=== PATIENT | male | born 1945 | race Caucasian/White ===

== ENCOUNTER 2020-04-09 08:29 | Outpatient (CLI) | payer MEDICARE, SELFPAY ==
--- NOTE | ~2020-04-09 | CT_ITS ---
EXAMINATION: CT abdomen pelvis w con DATE: 04/09/2020 09:06 INDICATION: Abdominal pain. TECHNIQUE: Computed tomography (CT) of the abdomen and pelvis was performed with 100 mL Omnipaque 350 intravenous contrast. Automated exposure control and iterative reconstruction technique were employe d. The dose-length product was 278.06 mGy-cm. COMPARISON: CT abdomen and pelvis 02/20/2019 FINDINGS: The visualized portions of the lung bases demonstrate mild atelectasis. No pleural effusion . The heart size is normal. No pericardial effusion. The liver, spleen, pancreas, and adrenal glands are normal. There are gallstones in the gallbladder, which is normal in size. There are cysts in the kidneys measuring up to 8 mm on the left. There are two 1 mm stones in right kidney. There are 1 mm a nd 5 mm stones in left kidney. The prostate is moderately enlarged. There are no dilated loops of bow el. The appendix is normal. There are no pathologically enlarged lymph nodes. There is no free intrap eritoneal fluid. There is a chronic compression fracture of L5. There is mild lumbar spondylosis. IMPRESSION: 1. Bilateral nonobstructing kidney stones. 2. Cholelithiasis. No evidence of acute cholecystitis. Reviewed, dictated and finalized at location A.
[2020-04-09 08:58] LABS: Estimated Glomerular Filt Rate > 60
== END 2020-04-09 08:30 | disposition home or self-care (01) ==
PROVIDERS: PCP Internal Medicine; Visit Provider Internal Medicine
DX: N20.0 Calculus of kidney (principal); K80.20 Calculus of gallbladder without cholecystitis without obstruction
CPT/HCPCS: 74177; Q9967

== ENCOUNTER 2021-08-05 09:19 | Outpatient (CLI) | payer MEDICARE, SELFPAY ==
--- NOTE | ~2021-08-05 | MR_ITS ---
EXAMINATION: MR brain/brain stem wo/w con EXAM DATE: 08/05/2021 11:40 INDICATION: Mild cognitive impairment. TECHNIQUE: Magnetic resonance imaging (MRI) of the brain/brain stem obtained without contrast. Sagit kadeem T1, axial diffusion, gradient echo (T2*), T1, T2, FLAIR sequences obtained. Patient was then inj ected with 13 cc intravenous Multihance contrast. Axial and coronal postcontrast T1 weighted sequence s obtained. There is no prior study for comparison. FINDINGS: There are no areas of restricted diffusion to suggest acute infarction. There is no acute hemorrhage seen on the T2*, a hemosiderin sensitive sequence. No intraparenchymal brain mass lesion. There is mild periventricular and subcortical T2/FLAIR signal hyperintensity, nonspecific but probab ly related to small vessel ischemic disease (microangiopathy). There are no extra-axial collections . Flow voids are seen in the cerebral arteries on the T2-weighted sequences consistent with their ex pected patency. Patient has had bilateral ocular lens surgery. Soft tissue is unremarkable. There are no areas of abnormal enhancement on the postcontrast images. IMPRESSION: 1. No acute intracranial findings. 2. Mild microangiopathy. Reviewed, dictated and finalized at location A. AKE PROFESSIONAL
[2021-08-05 10:00] LABS: Hemoglobin 13.3 g/dL (14.0-18.0); Mean Corpuscular HGB Conc 33.3 g/dl (32-36); Mean Corpuscular Volume 93.2 fl (80-100); Mean Platelet Volume 10.6 fl (7.4-10.4); Platelet Count Result 212 k/mm3 (150-375); Red Blood Count 4.29 M/mm3 (4.6-6.20); Red Cell Distribution Width 14.1 % (11.5-14.5); White Blood Count 5.4 K/mm3 (4.5-10.0)
[2021-08-05 10:12] LABS: Alanine Aminotransferase 19 U/L (4-50); Albumin Level 3.8 g/dL (3.5-5.1); Alkaline Phosphatase 58 U/L (38-126); Anion Gap 2 mmol/L (8-16); Aspartate Amino Transferase 27 U/L (17-59); Bilirubin,Total 0.8 mg/dL (0.2-1.3); Blood Urea Nitrogen 17 mg/dL (9-20); Calcium 8.4 mg/dL (8.4-10.2); Carbon Dioxide 32 mmol/L (22-30); Chloride 105 mmol/L (98-107); Cholesterol 191 mg/dL (0-200); Estimated Glomerular Filt Rate > 60; Glucose 102 mg/dL (65-110); HDL Direct 60 mg/dL; Potassium 4.2 mmol/L (3.4-5.0); Sodium 139 mmol/L (137-145); Triglycerides 65 mg/dL (<150)
[2021-08-05 10:21] LABS: Add Urine Microscopic? NO; Appearance Urine Clear (Clear); Bilirubin Urine Negative (Negative); Blood Urine Negative (Negative); Color Urine Yellow (Yellow); Glucose Urine UA Negative (Negative); Ketones Urine Negative (Negative); Leukocyte Esterase Ur Negative LEU/UL (NEGATIVE); Nitrate Urine Negative (Negative); Protein Urine Negative (Negative); Specific Grav Ur 1.014 (1.001-1.035); Urobilinogen Urine Negative mg/dL (<2.0)
[2021-08-05 10:23] LABS: LDL Cholesterol Direct 104 mg/dL
[2021-08-05 10:34] LABS: Basophils Absolute Auto 0.1 K/mm3 (0.0-0.1); Basophils Percent Auto 1.4 % (0.2-1.2); Eosinophils Absolute Auto 0.1 K/mm3 (0-0.3); Eosinophils Percent Auto 2.1 % (0-4.4); Free T4 Free Thyroxine 0.96 ng/mL (0.78-2.19); Immature Granulocyte Absolute 0.02 K/mm3 (0.00-0.031); Immature Granulocyte Percent A 0.4 % (0-0.5); Lymphocytes Absolute Auto 1.17 K/mm3 (0.9-3.2); Lymphocytes Percent Auto 20.7 % (18.3-44.2); Monocytes Absolute Auto 0.6 K/mm3 (0.1-0.6); Monocytes Percent Auto 9.9 % (2.6-8.5); Neutrophils Absolute Auto 3.7 K/mm3 (1.3-6.7); Neutrophils Percent Auto 65.5 % (45.5-73.1)
[2021-08-05 10:43] LABS: Prostate Specific Antigen 0.6 ng/mL (< OR = 4.0)
[2021-08-05 11:19] LABS: Folic Acid 14.2 ng/mL (2.76->20)
[2021-08-05 11:22] LABS: Estimated Glomerular Filt Rate > 60
== END 2021-08-05 09:20 | disposition home or self-care (01) ==
PROVIDERS: PCP Physician Assistant; Visit Provider Physician Assistant
DX: G31.84 Mild cognitive impairment of uncertain or unknown etiology (principal); R93.0 Abnormal findings on diagnostic imaging of skull and head, not elsewhere classified; Z12.5 Encounter for screening for malignant neoplasm of prostate; N40.0 Benign prostatic hyperplasia without lower urinary tract symptoms; Z79.899 Other long term (current) drug therapy
CPT/HCPCS: 36415; 70553; 80048; 80061; 80076; 81003; 82607; 82746; 84153; 84439; 84443; 85025; 85027; A9577; G0103

== ENCOUNTER 2022-06-27 13:41 | Observation (INO) | payer MEDICARE, SELFPAY ==
[2022-06-27] VITALS (8 sets, daily range): BP systolic 121–169; BP diastolic 54–68; PULSE 46–110; RESP 12–20; TEMP 36.4–37.3; O2SAT 95–100; BMI 22.1
--- NOTE | ~2022-06-27 | XR_ITS ---
EXAMINATION: XR abdomen/kub 1V DATE: 06/28/2022 05:22 INDICATION: Assess renal stone visibility TECHNIQUE: A supine view of the abdomen on 2 radiographs was obtained. COMPARISON: CT dated 06/27/2022 FINDINGS: 4 mm stone in an inferior calyx of the left kidney unchanged since prior CT. There is a left intraren al stent with loops formed in the left renal pelvis and in the bladder. No other stones seen along th e course of the ureter. There are few phleboliths in the pelvis. No dilated loops of bowel to suggest obstruction. Visualized lung bases are clear. Heart size is normal. Mild lumbar spondylosis. IMPRESSION: 1. 4 mm stone in an inferior calyx of the left kidney. 2. Left internal ureteral stent in expected position with no stones seen along the course of the sten t. Reviewed, dictated and finalized at location A. CONSULTANT IMPRESSION: 1. 4 mm stone in an inferior calyx of the left kidney. 2. Left internal ureteral stent in expected position with no stones seen along the course of the stent.
--- NOTE | ~2022-06-27 | XR_ITS ---
EXAMINATION: XR retrograde pyelo w/stent LT DATE: 06/27/2022 15:47 INDICATION: Obstructing left renal stone with left hydronephrosis. TECHNIQUE: 67 fluoroscopic images of the abdomen and pelvis were obtained during procedure performed by Dr. Delarosa. Radiologist was not present for the imaging or procedure. The amount of fluoroscop y time used during this procedure was 1.8 minutes. COMPARISON: CT dated FINDINGS: Images demonstrate cannulation retrograde contrast injection into the left ureter which proceeds to t he obstruction in the mid left ureter. Subsequent images demonstrate opacification of the catheter be yond the obstructing stone into the left renal pelvis where there is severe hydronephrosis. Final pro ges demonstrate placement of a left internal ureteral stent with loops formed in the left renal pelvi s and in the bladder. The obstructing stone which is seen on the prior CT is unable to be visualized on the fluoroscopic images. IMPRESSION: 1. Fluoroscopy utilized during placement of a left intrarenal stent which is in expected position spa nning the site of to a mid ureteral obstruction likely related to a ureteral stone seen on prior CT. See procedure note for further detail. Reviewed, dictated and finalized at location A. RAL RESOURCE OFFICER IMPRESSION: 1. Fluoroscopy utilized during placement of a left intrarenal stent which is in expected position spanning the site of to a mid ureteral obstruction likely re lated to a ureteral stone seen on prior CT. See procedure note for further deta il.
--- NOTE | 2022-06-27 13:45 | PM.IMHP ---
H&P: HPI History of Present Illness Date/Time: 06/27/22 13:45 Chief Complaint: abdominal pain Narrative: this is a 77-year-old male patient who has a history of having kidney disease. The patient had hyperparathyroidism and had a partial parathyroid ectomy in the past which did help with the kidney stones. However he does occasionally get at kidney stone here and there that he passes on his own. However this morning the patient went to [facility] after waking up with severe abdominal pain he had the CT of the abdomen which shows to use subjacent obstructing stacked stones in the distal left ureter at the level of the pelvic brim. Maurepas calcis seal clubbing pronounced hydronephrosis and dilated proximal left ureter. Mid ureteral wall enhancement and periureteral induration could represent infectious inflammatory process in the ureter. The stones comprised left renal function as there is no uptake concentration or clearance of the contrast by the left kidney and no opacification left renal pelvis or left ureter. Normal right kidney. No bowel obstruction or appendicitis or acute inflammatory changes in the large or small bowel. Cholelithiasis without findings of cholecystitis unchanged since 02/06. Urine was found to be negative and [facility]. The [facility] provider did speak with Dr. Gordon who agreed to see the patient consulted [facility]. Patient's lipase was only mildly elevated at 474. The patient was given morphine, Toradol, IV fluids, and iopamidol at [facility]. BUN was elevated to 25 and creatinine 1.72. The patient is being admitted to observation status on the date of service of 06/27/2022. Review of Systems Review of Systems: See HPI All systems reviewed & are unremarkable except as noted in HPI and below Constitutional: Constitutional: Reports as per HPI and Reports no additional constitutional complaints Eyes: Eyes: Reports as per HPI and Reports no additional eye complaints ENT: Reports system reviewed and no additional complaints, except as documented and Reports Normal hearing present Cardiovascular: Cardiovascular: Reports no additional cardiovascular complaints Respiratory: Respiratory: Reports no additional respiratory complaints and Reports no additional respiratory complaints Gastrointestinal: Gastrointestinal: Reports as per HPI and Reports no additional gastrointestinal complaints Musculoskeletal: Musculoskeletal: Reports no additional musculoskeletal complaints Integumentary/Breasts: Skin/Breast: Reports system reviewed and no additional complaints, except as docu and Reports as per HPI Neurologic: Reports system reviewed and no additional complaints, except as documented, Reports as per HPI and Reports Normal hearing present Psychiatric: Psychiatric: Reports no additional psychiatric complaints and Reports as per HPI Endocrine: Endocrine: Reports no additional endocrine complaints Hematologic/Lymphatic: Hematologic/Lymphatic: Reports no additional hematologic/lymphatic complaints Allergic/Immunologic: Allergic/Immunologic: Reports no additional allergic/immunologic complaints [facility] Past Medical History Medical History (Updated 06/27/22 @ 13:56 by Thelma Braxton NP) Anxiety BPH (benign prostatic hyperplasia) Gallstone Hyperlipidemia Hypertension Surgical History Surgical History (Updated 06/27/22 @ 13:56 by Thelma Braxton NP) H/O cataract extraction H/O knee surgery H/O parathyroidectomy partial History of extraction of renal calculus History of surgery on arm S/P tonsillectomy and adenoidectomy the patient has a large scar on his right flank area Family History Family History Mother Family history of chronic obstructive pulmonary disease Father Malignant neoplasm of prostate Family history of malignant melanoma Acute myocardial infarction Other Cerebrovascular accident Fam
--- NOTE | 2022-06-27 14:18 | WPDANESEPP ---
Anes - Eval Pre Procedure Procedure: cysto stent placement Date/Time: 06/27/22 14:18 Surgeon: maribel Pre Op Diagnosis: Ureteral Stone Patient Data Age: 77 Gender: M Height: 1.75 m Weight: 68.2 kg Allergies Allergy/AdvReac Type Severity Reaction Status Date / Time Penicillins Allergy Mild rash Verified 09/04/20 13:35 Home Medications Medication Instructions Recorded Confirmed Type cholecalciferol (vitamin D3) 50 50 mcg PO DAILY 07/17/20 06/27/22 History mcg (2,000 unit) tablet omega-3 fatty acids-fish oil 360 1 cap PO DAILY 07/17/20 06/27/22 History mg-1,200 mg capsule (Fish Oil) psyllium husk 0.52 gram capsule 1.04 g PO DAILY 07/17/20 06/27/22 History (Metamucil) amlodipine 5 mg tablet 5 mg PO DAILY #90 tabs 07/31/20 06/27/22 Rx escitalopram oxalate 20 mg tablet 20 mg PO DAILY 90 days #90 tabs 08/08/20 06/27/22 Rx metoprolol succinate 50 mg 50 mg PO DAILY #90 tabs 08/09/20 06/27/22 Rx tablet,extended release 24 hr diazepam 5 mg tablet 5 mg PO BID PRN anxiety 30 days 09/24/20 06/27/22 Rx #60 tabs finasteride 5 mg tablet 5 mg PO DAILY #90 tabs 09/24/20 06/27/22 Rx donepezil 5 mg tablet 5 mg PO HS 06/27/22 06/27/22 History memantine 10 mg tablet 10 mg PO QPM 06/27/22 06/27/22 History Patient hx anesthesia problems: none Family hx anesthesia problems: none Results Review: All pre-operative results and documents have been reviewed as part of the pre-operative evaluation. [facility] Past Medical History Medical History (Updated 06/27/22 @ 13:56 by Thelma Braxton NP) Anxiety BPH (benign prostatic hyperplasia) Gallstone Hyperlipidemia Hypertension Surgical History Surgical History (Updated 06/27/22 @ 13:56 by Thelma Braxton NP) H/O cataract extraction H/O knee surgery H/O parathyroidectomy partial History of extraction of renal calculus History of surgery on arm S/P tonsillectomy and adenoidectomy the patient has a large scar on his right flank area Family History Family History Mother Family history of chronic obstructive pulmonary disease Father Malignant neoplasm of prostate Family history of malignant melanoma Acute myocardial infarction Other Cerebrovascular accident Family history of cardiovascular disease Family history of coronary artery disease Family history of lung disease Family history of malignant neoplasm Social History Social History (Updated 06/27/22 @ 13:56 by Thelma Braxton NP) Social History: the patient is and lives with his who is the durable power deputy prosecuting attorney for healthcare. The patient has 3 children. The patient retired from [employer]. He is a lifelong nonsmoker. He does not use any marijuana alcohol or illicit drugs. Code status full code Smoking status: Never smoker Second hand tobacco smoke exposure: No Alcohol intake: current Drinks per week: 1 Substance use: never Substance use type: does not use Lack of Transportation: No Lack of Food: Never True Current Housing: I Have Housing Concerned About Future Housing: No Difficulty Paying Gas/Electric Bills: No Difficulty Paying for Meds: No Currently Unemployed: No Education: Bachelor's Degree Difficulty w/ Childcare or Family Care: No Spiritual care concerns: No Exam Day of Procedure 06/27/22 14:18 Heart: regular rate and rhythm Lungs: clear to auscultation Airway: Mallampati scale class 1 and special considerations Neurological: alert and oriented
[2022-06-27 14:53] LABS: Lactic Acid Reflex 0.8 mmol/L (0.7-2.0); Magnesium 2.1 mg/dL (1.6-2.3)
--- NOTE | 2022-06-27 15:06 | P.PNAN_ITS ---
Anes - Eval Final PreProcedure Day of Procedure 06/27/22 15:06 Patient weight: normal Heart: regular rate and rhythm Lungs: clear to auscultation Airway: Mallampati scale class 1 Neurological: alert and oriented Last oral intake: >/= 8 hours ASA classification: II Emergent: no Anesthetic plan: proceed Anesthesia type and monitoring: general LMA and standard monitoring Results Review: All pre-operative results and documents have been reviewed as part of the pre- operative evaluation. Informed Consent: The patient's anesthetic plan and its attendant risks and benefits were discussed with the patient/family/POA. Questions were solicited and answers provided to the satisfaction of the patient/family/POA.
[2022-06-27] MEDS: ceFAZolin SODIUM 1 GM VIAL 2 GM IV PUSH (15:18)
[2022-06-27] MEDS: LACTATED RINGERS 1,000 ML 30 ML IV CONT (15:18)
--- NOTE | 2022-06-27 15:19 | WPDURCON ---
Assessment and Plan Assessment and plan (1) Acute unilateral obstructive uropathy: Code(s): N13.9 - Obstructive and reflux uropathy, unspecified Status: Acute (2) Acute kidney injury: Code(s): N17.9 - Acute kidney failure, unspecified Status: Acute (3) Ureteral calculus, left: Code(s): N20.1 - Calculus of ureter Status: Acute Assessment and Plan: 77-year-old gentleman with history of nephrolithiasis presenting with 10mm and 6mm left mid ureteral stones with associated hydroureteronephrosis. -risk benefits alternatives discussed with patient. Given his significant pain, renal insufficiency and large size of the stones will plan to take the patient today for cystoscopy and left ureteral stent insertion. The risks benefits alternatives were discussed the patient patient understands the risks include but are not limited to infection, bleeding, pain, injury to surrounding structures, inability to place stent, and complications of anesthesia. He understands he will need definitive stone management at a later date. The patient and agree to proceed with procedure. Urology Consult Note HPI Date Seen: 06/27/22 Requesting Physician: Cecille Delarosa MD Primary Care Provider: Mari Khan, PAAlexC Consult Narrative Narrative: Oscar Woods is a 77 year old male with history of stone disease. He presented to [facility] Emergency Department this morning and found to have two left ureteral stones causing left hydronephrosis and acute renal insufficiency. The patient continued to have significant left-sided flank pain and was therefore transferred to [facility] for surgical intervention. [facility] Past Medical History Medical History (Updated 06/27/22 @ 15:23 by Cecille Delarosa MD) Anxiety BPH (benign prostatic hyperplasia) Gallstone Hyperlipidemia Hypertension Surgical History Surgical History (Updated 06/27/22 @ 13:56 by Thelma Braxton NP) H/O cataract extraction H/O knee surgery H/O parathyroidectomy partial History of extraction of renal calculus History of surgery on arm S/P tonsillectomy and adenoidectomy the patient has a large scar on his right flank area Family History Family History Mother Family history of chronic obstructive pulmonary disease Father Malignant neoplasm of prostate Family history of malignant melanoma Acute myocardial infarction Other Cerebrovascular accident Family history of cardiovascular disease Family history of coronary artery disease Family history of lung disease Family history of malignant neoplasm Social History Social History (Updated 06/27/22 @ 13:56 by Thelma Braxton NP) Social History: the patient is and lives with his who is the durable power web page developer for healthcare. The patient has 3 children. The patient retired from [employer]. He is a lifelong nonsmoker. He does not use any marijuana alcohol or illicit drugs. Code status full code Smoking status: Never smoker Second hand tobacco smoke exposure: No Alcohol intake: current Drinks per week: 1 Substance use: never Substance use type: does not use Lack of Transportation: No Lack of Food: Never True Current Housing: I Have Housing Concerned About Future Housing: No Difficulty Paying Gas/Electric Bills: No Difficulty Paying for Meds: No Currently Unemployed: No Education: Bachelor's Degree Difficulty w/ Childcare or Family Care: No Spiritual care concerns: No Meds Home Medications and Allergies Home Medications Medication Instructions Recorded Confirmed Type cholecalciferol (vitamin D3) 50 50 mcg PO DAILY 07/17/20 06/27/22 History mcg (2,000 unit) tablet omega-3 fatty acids-fish oil 360 1 cap PO DAILY 07/17/20 06/27/22 History mg-1,200 mg capsule (Fish Oil) psyllium husk 0.52 gram capsule 1.04 g PO
--- NOTE | 2022-06-27 15:25 | WPDHPUPDATE1 ---
History and Physical Update Update Date/Time: 06/27/22 15:25 History and Physical has been reviewed, including an updated exam of the patient. There are NO changes in the patient's condition. Risks, benefits, and alternatives have been discussed and questions answered. Patient agrees to proceed with procedure.
[2022-06-27] MEDS: LIDOCAINE HCL 2% GEL UROJET 10 ML PKG MUCOUS MEM (15:32)
--- NOTE | 2022-06-27 15:45 | W.PM.PROC2 ---
Procedure Note - Detailed Date of Procedure 06/27/22 Pre-op Diagnosis Left Ureteral Stone Post-op Diagnosis Same Procedure Performed Cystoscopy, left retrograde pyelogram, left ureteral stent insertion Surgeon Cecille Delarosa MD Anesthesia MAC Indications Obstructing left ureteral stone Findings Moderate/severe left hydroureteronephrosis down to level of obstructing stones Description of Procedure Informed consent was obtained. Patient taken the operating. He was given preoperative IV antibiotics. He was induced anesthesia. Twenty-two F cystoscope was inserted through the urethra into bladder. The patient had moderate bilobar prostatic hyperplasia with mild bladder trabeculation. Patient had bilateral orthotopic orifices. Can the left ureteral orifice and a retrograde pyelogram revealed obstruction of the left mid ureter with contrast unable to pass. We then advanced a 5 F catheter up to this point and were able under fluoroscopic guidance to guide a wire beyond the level of the obstructing stone. We then again performed retrograde pyelogram revealing moderate to severe left hydroureteronephrosis down to the level of the stone. Over wire we then placed a 4.8 F variable length stent with a curl renal pelvis and curl in the bladder. The bladder was then emptied patient was taken to recovery in stable condition Complications No immediate complications Condition Stable Disposition PACU
[2022-06-27] MEDS: MEMANTINE 10 MG TABLET PO (17:10)
[2022-06-27] MEDS: SODIUM CHLORIDE 0.9% IV 1,000 ML 100 ML IV CONT (17:21)
[2022-06-27] MEDS: amLODIPine BESYLATE 5 MG TABLET PO (17:22)
[2022-06-27] MEDS: FINASTERIDE 5 MG TABLET PO (17:23)
[2022-06-27] MEDS: METOPROLOL SUCCINATE EXT REL 50 MG TABCR PO (17:23)
[2022-06-27] MEDS: CHOLECALCIFEROL 1,000 UNITS TABLET 2000 UNITS PO (17:23)
[2022-06-27] MEDS: ESCITALOPRAM OXALATE 10 MG TABLET 20 MG PO (17:23)
[2022-06-27] MEDS: OMEGA 3 POLYUNSAT FATTY ACIDS 1 GM CAP PO (17:26)
[2022-06-27] MEDS: DONEPEZIL HCL 5 MG TABLET PO (20:30)
[2022-06-27 20:38] LABS: Appearance Urine Slightly Cloudy (Clear); Bilirubin Urine Negative (Negative); Blood Urine 3+ (Negative); Color Urine Yellow (Yellow); Glucose Urine UA Negative (Negative); Ketones Urine Negative (Negative); Leukocyte Esterase Ur Trace LEU/UL (NEGATIVE); Nitrate Urine Negative (Negative); Protein Urine 2+ mg/dL (Negative); Urobilinogen Urine 0.2 mg/dL (<2.0)
[2022-06-27 20:51] LABS: RBC Urine >75 /hpf (0-2); Squamous Epithelial Cell Urine Rare /hpf (Few); WBC Urine 21-30 /hpf (0-3)
[2022-06-27 21:24] LABS: Add Urine Microscopic? YES
[2022-06-28] MEDS: SODIUM CHLORIDE 0.9% IV 1,000 ML 100 ML IV CONT (02:30)
[2022-06-28 05:36] VITALS: BP 166/86; PULSE 57; RESP 20; TEMP 37.3; O2SAT 97
[2022-06-28 05:39] LABS: Basophils Percent Auto 0.6 % (0.2-1.2); Eosinophils Absolute Auto 0.2 K/mm3 (0-0.3); Eosinophils Percent Auto 2.3 % (0-4.4); Hematocrit 35.2 % (42.0-52.0); Hemoglobin 11.9 g/dL (14.0-18.0); Immature Granulocyte Absolute 0.02 K/mm3 (0.00-0.031); Immature Granulocyte Percent A 0.3 % (0-0.5); Mean Corpuscular HGB Conc 33.8 g/dl (32-36); Mean Corpuscular Hemoglobin 31.2 pg (26-34); Mean Corpuscular Volume 92.1 fl (80-100); Mean Platelet Volume 11.1 fl (7.4-10.4); Monocytes Absolute Auto 0.7 K/mm3 (0.1-0.6); Monocytes Percent Auto 9.7 % (2.6-8.5); Neutrophils Absolute Auto 4.5 K/mm3 (1.3-6.7); Neutrophils Percent Auto 63.1 % (45.5-73.1); Platelet Count Result 183 k/mm3 (150-375); Red Blood Count 3.82 M/mm3 (4.6-6.20); Red Cell Distribution Width 13.9 % (11.5-14.5); White Blood Count 7.1 K/mm3 (4.5-10.0)
[2022-06-28 05:49] LABS: Lactic Acid Reflex 0.7 mmol/L (0.7-2.0)
[2022-06-28 05:53] LABS: Alanine Aminotransferase 22 U/L (6-50); Albumin Level 3.4 g/dL (3.5-5.1); Alkaline Phosphatase 61 U/L (38-126); Anion Gap 5 mmol/L (8-16); Aspartate Amino Transferase 23 U/L (17-59); Bilirubin,Total 0.6 mg/dL (0.2-1.3); Blood Urea Nitrogen 18 mg/dL (9-20); Calcium 7.5 mg/dL (8.4-10.2); Carbon Dioxide 26 mmol/L (22-30); Chloride 108 mmol/L (98-107); Estimated CRCL calculation 47 ml/min; Estimated Glomerular Filt Rate > 60; Glucose 89 mg/dL (65-110); Lipase 75 U/L (23-300); Magnesium 2.1 mg/dL (1.6-2.3); Potassium 3.6 mmol/L (3.4-5.0); Sodium 139 mmol/L (137-145)
--- NOTE | 2022-06-28 07:13 | P.PNIM_ITS ---
Progress Note: A&P Assessment and Plan (1) Left nephrolithiasis: Code(s): N20.0 - Calculus of kidney Status: Acute Assessment and Plan: * Direct admit from [facility] for further evaluation of kidney stone * CT at [facility] showed left sided stone 100mm and 6mm mid left ureter with hydronephrosis * Urology consulted * Cystoscopy performed with stent placement * Trend urine output (2) Acute unilateral obstructive uropathy: Code(s): N13.9 - Obstructive and reflux uropathy, unspecified Status: Acute Assessment and Plan: * Urology consulted * Stent placement on 06/27/22 * See above (3) BPH (benign prostatic hyperplasia): Code(s): N40.0 - Benign prostatic hyperplasia without lower urinary tract symptoms Status: Acute Assessment and Plan: * Continue home finastride * Consider adding tamsulosin * PRN bladder scan * Trend urine output (4) Acute kidney injury: Code(s): N17.9 - Acute kidney failure, unspecified Status: Acute Assessment and Plan: * BUN/Cr elevated at 25/1.72 upon arrival * Currently 18/1.10 * Baseline 0.9-1 * IV fluids given * Most likely related to ureteral stone * Resolved (5) Anxiety: Code(s): F41.9 - Anxiety disorder, unspecified Status: Acute Assessment and Plan: * Continue with home diazepam 5mg PO PRN BID * Stable * Continue to trend (6) Gallstone: Code(s): K80.20 - Calculus of gallbladder without cholecystitis without obstruction Status: Acute Assessment and Plan: * The patient stated he has been worked up for the gallstones but no surgery is planned in the near future * Stable at this time * Will defer to outpatient follow up (7) Hyperlipidemia: Code(s): E78.5 - Hyperlipidemia, unspecified Status: Acute Assessment and Plan: -Continue with fish oil (8) Hypertension: Code(s): I10 - Essential (primary) hypertension Status: Acute Assessment and Plan: * Current BP is 166/86 * Most likely elevated from anxiety of recent findings and events * Continue home amlodipine and metoprolol * Trend BP * Adjust therapy as indicated Time Spent With Patient Time with patient: Greater than 35 minutes Subjective Date/time seen: 06/28/22 07:13 Interval history: 06/28/22 06/27/22 1345 This is a 77-year-old male patient who has a history of having kidney disease.? The patient had hyperparathyroidism and had a partial parathyroid ectomy in the past which did help with the kidney stones.? However he does occasionally get at kidney stone here and there that he passes on his own.? However this morning the patient went to [facility] after waking up with severe abdominal pain he had the CT of the abdomen which shows to use subjacent obstructing stacked stones in the distal left ureter at the level of the pelvic brim.? Gunlock calcis seal clubbing pronounced hydronephrosis and dilated proximal left ureter.? Mid ureteral wall enhancement and periureteral induration could represent infectious inflammatory process in the ureter.? The stones comprised left renal function as there is no uptake concentration or clearan
--- NOTE | 2022-06-28 07:13 | PM.IMPN ---
Progress Note: A&P Assessment and Plan (1) Left nephrolithiasis: Code(s): N20.0 - Calculus of kidney Status: Acute Assessment and Plan: Direct admit from [place] for further evaluation of kidney stone CT at [place] showed left sided stone 100mm and 6mm mid left ureter with hydronephrosis Urology consulted Cystoscopy performed with stent placement Trend urine output (2) Acute unilateral obstructive uropathy: Code(s): N13.9 - Obstructive and reflux uropathy, unspecified Status: Acute Assessment and Plan: Urology consulted Stent placement on 06/27/22 See above (3) BPH (benign prostatic hyperplasia): Code(s): N40.0 - Benign prostatic hyperplasia without lower urinary tract symptoms Status: Acute Assessment and Plan: Continue home finastride Consider adding tamsulosin PRN bladder scan Trend urine output (4) Acute kidney injury: Code(s): N17.9 - Acute kidney failure, unspecified Status: Acute Assessment and Plan: BUN/Cr elevated at 25/1.72 upon arrival Currently 18/1.10 Baseline 0.9-1 IV fluids given Most likely related to ureteral stone Resolved (5) Anxiety: Code(s): F41.9 - Anxiety disorder, unspecified Status: Acute Assessment and Plan: Continue with home diazepam 5mg PO PRN BID Stable Continue to trend (6) Gallstone: Code(s): K80.20 - Calculus of gallbladder without cholecystitis without obstruction Status: Acute Assessment and Plan: The patient stated he has been worked up for the gallstones but no surgery is planned in the near future Stable at this time Will defer to outpatient follow up (7) Hyperlipidemia: Code(s): E78.5 - Hyperlipidemia, unspecified Status: Acute Assessment and Plan: -Continue with fish oil (8) Hypertension: Code(s): I10 - Essential (primary) hypertension Status: Acute Assessment and Plan: Current BP is 166/86 Most likely elevated from anxiety of recent findings and events Continue home amlodipine and metoprolol Trend BP Adjust therapy as indicated Time Spent With Patient Time with patient: Greater than 35 minutes Subjective Date/time seen: 06/28/22 07:13 Interval history: 06/28/22 06/27/22 1345 This is a 77-year-old male patient who has a history of having kidney disease.? The patient had hyperparathyroidism and had a partial parathyroid ectomy in the past which did help with the kidney stones.? However he does occasionally get at kidney stone here and there that he passes on his own.? However this morning the patient went to [facility] after waking up with severe abdominal pain he had the CT of the abdomen which shows to use subjacent obstructing stacked stones in the distal left ureter at the level of the pelvic brim.? Argenta calcis seal clubbing pronounced hydronephrosis and dilated proximal left ureter.? Mid ureteral wall enhancement and periureteral induration could represent infectious inflammatory process in the ureter.? The stones comprised left renal function as there is no uptake concentration or clearance of the contrast by the left kidney and no opacification left renal pelvis or left ureter.? Normal right kidney.? No bowel obstruction or appendicitis or acute inflammatory changes in the large or small bowel.? Cholelithiasis without findings of cholecystitis unchanged since 02/06.? Urine was found to be negative and [facility].? The [place] provider did speak with Dr. Gordon who agreed to see the patient consulted [facility].? Patient's lipase was only mildly elevated at 474.? The patient was given morphine, Toradol, IV fluids, and iopamidol? at [facility].? BUN was elevated to 25 and creatinine 1.72. Review of Systems Review of
--- NOTE | 2022-06-28 07:15 | P.DS_ITS ---
DS: Admitting Diagnosis Discharge Date 06/28/22 0715 Admitting Diagnosis Kidney stone DS: Discharge Diagnosis Discharge Diagnosis (1) Left nephrolithiasis: Code(s): N20.0 - Calculus of kidney Status: Acute Assessment and Plan: * Direct admit from [place] for further evaluation of kidney stone * CT at [place] showed left sided stone 100mm and 6mm mid left ureter with hydronephrosis * Urology consulted * Cystoscopy performed with stent placement * Trend urine output (2) Acute unilateral obstructive uropathy: Code(s): N13.9 - Obstructive and reflux uropathy, unspecified Status: Acute Assessment and Plan: * Urology consulted * Stent placement on 06/27/22 * See above (3) BPH (benign prostatic hyperplasia): Code(s): N40.0 - Benign prostatic hyperplasia without lower urinary tract symptoms Status: Acute Assessment and Plan: * Continue home finastride * Consider adding tamsulosin * PRN bladder scan * Trend urine output (4) Acute kidney injury: Code(s): N17.9 - Acute kidney failure, unspecified Status: Acute Assessment and Plan: * BUN/Cr elevated at 25/1.72 upon arrival * Currently 18/1.10 * Baseline 0.9-1 * IV fluids given * Most likely related to ureteral stone * Resolved (5) Anxiety: Code(s): F41.9 - Anxiety disorder, unspecified Status: Acute Assessment and Plan: * Continue with home diazepam 5mg PO PRN BID * Stable * Continue to trend (6) Gallstone: Code(s): K80.20 - Calculus of gallbladder without cholecystitis without obstruction Status: Acute Assessment and Plan: * The patient stated he has been worked up for the gallstones but no surgery is planned in the near future * Stable at this time * Will defer to outpatient follow up (7) Hyperlipidemia: Code(s): E78.5 - Hyperlipidemia, unspecified Status: Acute Assessment and Plan: -Continue with fish oil (8) Hypertension: Code(s): I10 - Essential (primary) hypertension Status: Acute Assessment and Plan: * Current BP is 166/86 * Most likely elevated from anxiety of recent findings and events * Continue home amlodipine and metoprolol * Trend BP * Adjust therapy as indicated DS: Summary Hospital Course Hospital Course: patient is 77-year-old male with a past medical history of BPH, anxiety, hypertension, hyperlipidemia who was a direct admit from [facility] for further management of a right ureteral kidney stone. Urology was consulted and patient was taken for cystoscopy. Renal stent was placed. Patient also presented with an NICOLAS related to urinary obstruction. Patient was also noted to have cholelithiasis however is unchanged since 02/06. Lipase was slightly elevated however is resolved. Currently labs and vital signs are stable at this time. Patient stable for discharge for labs and vital signs. Patient will need follow-up with Urology in 2 weeks for further management of the stent. Status at Discharge Functional status at discharge: independent ambulation Overall status at discharge: patient is progressing back to baseline Time Spent with Patient Time a
--- NOTE | 2022-06-28 07:15 | PM.DS ---
DS: Admitting Diagnosis Discharge Date 06/28/22 0715 Admitting Diagnosis Kidney stone DS: Discharge Diagnosis Discharge Diagnosis (1) Left nephrolithiasis: Code(s): N20.0 - Calculus of kidney Status: Acute Assessment and Plan: Direct admit from [place] for further evaluation of kidney stone CT at [place] showed left sided stone 100mm and 6mm mid left ureter with hydronephrosis Urology consulted Cystoscopy performed with stent placement Trend urine output (2) Acute unilateral obstructive uropathy: Code(s): N13.9 - Obstructive and reflux uropathy, unspecified Status: Acute Assessment and Plan: Urology consulted Stent placement on 06/27/22 See above (3) BPH (benign prostatic hyperplasia): Code(s): N40.0 - Benign prostatic hyperplasia without lower urinary tract symptoms Status: Acute Assessment and Plan: Continue home finastride Consider adding tamsulosin PRN bladder scan Trend urine output (4) Acute kidney injury: Code(s): N17.9 - Acute kidney failure, unspecified Status: Acute Assessment and Plan: BUN/Cr elevated at 25/1.72 upon arrival Currently 18/1.10 Baseline 0.9-1 IV fluids given Most likely related to ureteral stone Resolved (5) Anxiety: Code(s): F41.9 - Anxiety disorder, unspecified Status: Acute Assessment and Plan: Continue with home diazepam 5mg PO PRN BID Stable Continue to trend (6) Gallstone: Code(s): K80.20 - Calculus of gallbladder without cholecystitis without obstruction Status: Acute Assessment and Plan: The patient stated he has been worked up for the gallstones but no surgery is planned in the near future Stable at this time Will defer to outpatient follow up (7) Hyperlipidemia: Code(s): E78.5 - Hyperlipidemia, unspecified Status: Acute Assessment and Plan: -Continue with fish oil (8) Hypertension: Code(s): I10 - Essential (primary) hypertension Status: Acute Assessment and Plan: Current BP is 166/86 Most likely elevated from anxiety of recent findings and events Continue home amlodipine and metoprolol Trend BP Adjust therapy as indicated DS: Summary Hospital Course Hospital Course: patient is 77-year-old male with a past medical history of BPH, anxiety, hypertension, hyperlipidemia who was a direct admit from [facility] for further management of a right ureteral kidney stone. Urology was consulted and patient was taken for cystoscopy. Renal stent was placed. Patient also presented with an NICOLAS related to urinary obstruction. Patient was also noted to have cholelithiasis however is unchanged since 02/06. Lipase was slightly elevated however is resolved. Currently labs and vital signs are stable at this time. Patient stable for discharge for labs and vital signs. Patient will need follow-up with Urology in 2 weeks for further management of the stent. Status at Discharge Functional status at discharge: independent ambulation Overall status at discharge: patient is progressing back to baseline Time Spent with Patient Time attestation: Total time spent providing and/or coordinating discharge services: 40 minutes Time spent: Greater than 30 minutes Specific discharge activities: Diagnostic testing, chart review, developing a treatment plan, education, care coordination documentation, physical exam, result review Exam Narrative: General: well-nourished, well-appearing 77-year-old male, sitting up in bed, comfortable, NARD Neuro: awake, alert and oriented x4, speech clear, no focal neuro deficits noted HEENMT: normocephalic, atraumatic, EOMI, sclerae anicteric, moist oral mucosa Respiratory: Clear to auscultation bilaterally without crackles, rhonchi or wheezes, n
[2022-06-28] MEDS: CHOLECALCIFEROL 1,000 UNITS TABLET 2000 UNITS PO (08:17)
[2022-06-28] MEDS: amLODIPine BESYLATE 5 MG TABLET PO (08:17)
[2022-06-28 08:18] VITALS: PULSE 64
[2022-06-28] MEDS: ESCITALOPRAM OXALATE 10 MG TABLET 20 MG PO (08:18)
[2022-06-28] MEDS: FINASTERIDE 5 MG TABLET PO (08:18)
[2022-06-28] MEDS: OMEGA 3 POLYUNSAT FATTY ACIDS 1 GM CAP PO (08:18)
[2022-06-28] MEDS: METOPROLOL SUCCINATE EXT REL 50 MG TABCR PO (08:18)
--- NOTE | 2022-06-28 12:24 | WPDUROPN2 ---
Progress Note: A&P Assessment and Plan (1) Ureteral calculus, left: Code(s): N20.1 - Calculus of ureter Status: Acute (2) Left nephrolithiasis: Code(s): N20.0 - Calculus of kidney Status: Acute (3) Acute kidney injury: Code(s): N17.9 - Acute kidney failure, unspecified Status: Acute Plan 77-year-old gentleman with history of nephrolithiasis presenting with 10mm and 6mm left mid ureteral stones with associated hydroureteronephrosis. -Status post ureteral stent placement. Patient is feeling much better. Renal function improved. - Plan discharge home today. Plan outpatient definitive stone management, likely ESWL. Explained to patient and his they may need multiple therapies given size of multiple stones Subjective Subjective Date/Time Seen: 06/28/22 12:24 pt feeling much better Exam Narrative: patient is awake and alert, no acute distress breathing unlabored abd soft Objective Data Vital Signs Vital Signs: Vital Signs - 24 hr 06/27/22 15:47 06/27/22 16:00 06/27/22 16:15 Temperature 36.4 C Pulse Rate 53 L 47 L 47 L Respiratory Rate 12 13 12 Blood Pressure 121/63 130/63 139/65 Pulse Oximetry 95 95 96 Oxygen Delivery Room Air Room Air Room Air 06/27/22 16:23 06/27/22 17:23 06/27/22 17:55 Temperature 36.7 C Pulse Rate 46 L 55 L 52 L Respiratory Rate 12 12 Blood Pressure 145/68 H 169/65 H Pulse Oximetry 97 100 Oxygen Delivery Room Air 06/27/22 18:10 06/27/22 20:17 06/28/22 05:36 Temperature 36.7 C 37.3 C 37.3 C Pulse Rate 87 110 H 57 L Respiratory Rate 12 20 20 Blood Pressure 136/54 L 123/68 166/86 H Pulse Oximetry 100 97 97 Oxygen Delivery 06/28/22 08:18 Temperature Pulse Rate 64 Respiratory Rate Blood Pressure Pulse Oximetry Oxygen Delivery Intake/Output Intake/Output: Intake & Output 06/25/22 06/26/22 06/27/22 06/28/22 23:59 23:59 23:59 23:59 Intake Total 770 1690 Output Total 300 1050 Balance 470 640 Meds/Results Medications: Active Medications Generic Name Dose Route Start Last Admin Trade Name Freq PRN Reason Stop Dose Admin Amlodipine Besylate 5 mg 06/28/22 09:00 06/28/22 08:17 Amlodipine Besylate 5 Mg Tablet PO 5 mg DAILY HOLLAND Administration Diazepam 5 mg 06/27/22 14:09 Diazepam (*Crx) 5 Mg Tablet PO BID PRN anxiety Donepezil HCl 5 mg 06/27/22 21:00 06/27/22 20:30 Donepezil Hcl 5 Mg Tablet PO 5 mg HS HOLLAND Administration Escitalopram Oxalate 20 mg 06/28/22 09:00 06/28/22 08:18 Escitalopram Oxalate 10 Mg Tablet PO 20 mg DAILY HOLLAND Administration Finasteride 5 mg 06/28/22 09:00 06/28/22 08:18 Finasteride 5 Mg Tablet PO 5 mg DAILY HOLLAND Administration Fish Oil 1 gm 06/28/22 09:00 06/28/22 08:18 [place] 3 Polyunsat Fatty Acids 1 Gm Cap PO 1 gm DAILY HOLLAND Administration Hydralazine HCl 10 mg 06/27/22 14:11 Hydralazine Hcl 20 Mg/Ml Vial IV PUSH Q8H PRN Blood Pressure - High Memantine 10 mg 06/27/22 18:00 06/27/22 17:10 Memantine 10 Mg Tablet PO 10 mg QPM HOLLAND Administration Metoprolol Succinate 50 mg 06/28/22 09:00 06/28/22 08:18 Metoprolol Succinate Ext Rel 50 Mg Tabcr PO 50 mg DAILY HOLLAND Administration Morphine Sulfate 2 mg 06/27/22 13:41 Morphine Sulfate (*Crx) 2 Mg/Ml Inj IV PUSH Q4H PRN Pain Rated 7-10 Ondansetron HCl 4 mg 06/27/22 14:12 Ondansetron Inj 4 Mg/2 Ml Vial IV PUSH Q4H PRN Nausea And Vomiting Vitamin D 2,000 units 06/28/22 09:00 06/28/22 08:17 Cholecalciferol 1,000 Units Tablet PO 2,000 units DAILY HOLLAND Administration Radiology Results: ITS Impressions Retrograde Pyelogram 06/27/22 19:48 IMPRESSION: 1. Fluoroscopy utilized during placement of a left intrarenal stent which is in expected position spanning the site of to a mid ureteral obstruction likely related to a ureteral stone seen on prior CT. See procedure note for
== END 2022-06-28 13:30 | disposition home or self-care (01) ==
PROVIDERS: Nurse Practitioner; Urology; Admitting Provider Chiropractor; PCP Physician Assistant; Visit Provider Chiropractor
PROC: (CPT 52352; principal; 2022-06-27 15:00)
DX: N13.2 Hydronephrosis with renal and ureteral calculous obstruction (principal); N40.0 Benign prostatic hyperplasia without lower urinary tract symptoms; N17.9 Acute kidney failure, unspecified; N32.89 Other specified disorders of bladder; K80.20 Calculus of gallbladder without cholecystitis without obstruction; F41.9 Anxiety disorder, unspecified; E78.5 Hyperlipidemia, unspecified; E21.3 Hyperparathyroidism, unspecified; I10 Essential (primary) hypertension; E89.2 Postprocedural hypoparathyroidism; F10.90 Alcohol use, unspecified, uncomplicated; Z79.899 Other long term (current) drug therapy
CPT/HCPCS: 52005; 52332; 36415; 74018; 74420; 80053; 81001; 83605; 83690; 83735; 84100; 84443; 85025; 87040; 87086; A9270; C1758; C1769; C2617; G0378; G0379; J0690; J2704; J3010; J7030; J7120

== ENCOUNTER 2022-07-06 12:41 | Outpatient (CLI) | payer MEDICARE, SELFPAY ==
--- NOTE | 2022-07-06 12:59 | ECG_ITS ---
Measurements Intervals [place] Rate: 50 P: 62 OK: 147 QRS: 40 QRSD: 96 T: 38 QT: 482 QTc: 443 Interpretive Statements SINUS BRADYCARDIA BASELINE ARTIFACT- I, II, III, AVR BORDERLINE ECG NO PREVIOUS ECG AVAILABLE FOR COMPARISON Electronically Signed On 07-06-2022 14:00:04 E BUSINESS MANAGER by Tyrel Worrell D.O.
[2022-07-06 14:01] LABS: INR 1.1; Prothrombin Time 13.8 Seconds (11.1-14.7)
[2022-07-06 14:02] LABS: Partial Thromboplastin Time 27.4 SECONDS (22.3-36.8)
== END 2022-07-06 12:42 | disposition home or self-care (01) ==
PROVIDERS: PCP Physician Assistant; Visit Provider Urology
DX: N20.2 Calculus of kidney with calculus of ureter (principal); I10 Essential (primary) hypertension; Z01.818 Encounter for other preprocedural examination; R00.1 Bradycardia, unspecified
CPT/HCPCS: 36415; 85610; 85730; 93005

== ENCOUNTER 2022-07-10 03:37 | Day surgery (SDC) | payer MEDICARE, SELFPAY ==
[2022-07-01 11:02] VITALS: BMI 22.1
--- NOTE | 2022-07-01 11:13 | PC.NURSE ---
PRE-OP INSTRUCTIONS, PLEASE READ CAREFULLY Report to the Outpatient Waiting Room, entrance under the green pavilion located off [facility], at time _0800_ on date _07/10/22_. Planned Procedure Time: _1000_. Time changes happen often and if your time is changed the preop area will call you the afternoon before. - You and your visitor will be asked to self-screen and do not enter if you have any COVID symptoms. - Only one visitor is requested with a max of two and NO children visitors are allowed at this time. - The patient visitor may be requested to leave or wait in car when not with patient due to distancing restrictions. - A mask is optional within the hospital. Patients may have clear liquids (water, carbonated beverages, clear teas, apple juice) until 3 hours prior to surgery (0700 AM) with a maximum of 20 ounces. - No food from midnight until time of surgery Take the following medications with a SIP of water the morning of surgery: _ESCITALOPRAM, MEMANTINE & DIAZEPAM IF NEEDED_ Medications to discontinue per ANESTHESIA -_FISH OIL 3 DAYS PRIOR TO SURGERY, Date to take last dose 07/06/22_ Please no make-up, nail mozambican, hairspray, perfume, deodorant, or body powder the day of surgery. No jewelry (including any body piercings) or valuables the day of surgery, leave them at home. Please take a shower or bath the night before, or the morning of, surgery with an antibacterial soap. Wear comfortable, loose fitting clothing. Children are encouraged to wear pajamas. - Jewelry must be removed prior to entering the operating room. Rings and piercings that are not removed may be cut off. - The hospital will not accept responsibility for valuables. - Please leave all valuables, including medications, at home the day of surgery. If you are going home after surgery, a licensed dedicated truck driver must drive you home. - NO public transportation without another adult if you receive anesthesia. - We recommend that an adult stay with you for 24 hours following discharge. - We also recommend that you do not drive, make important decision, drink alcoholic beverages, or take any drugs that were not prescribed by your health care provider for at least 24 hours after your discharge time. Follow any additional instructions given to you from your surgeon. If you or anyone in your household have experienced Covid symptoms in the past week, please notify your surgeon or the nurse liaison at the phone number below for possible testing. Telephone instructions given to _PATIENT'S SPOUSE - CHUCKIE_and asked if any additional questions and then verbalized understanding. Patient advised to call surgeon office or pre surgery nurse liaison [phone] if any additional questions.
--- NOTE | 2022-07-07 07:53 | PM.HPGS ---
History of Present Illness History of Present Illness Consent: Risks, benefits, and alternatives have been discussed and questions answered. Patient agrees to proceed with procedure. Chief complaint: ureteral stones left Narrative: Oscar Woods is a 77 year old male Recently presented with left flank pain and imaging demonstrating a 10 mm and 6 mm left mid ureteral calculus. He underwent cystoscopy with left ureteral stent placement by Dr. Delarosa and now presents for definitive left ESWL. He is aware of the risk of this including, but not limited to, adverse cardiopulmonary events, persistent stone fragments that may require additional procedures, hematuria and perinephric hematoma. Review of Systems Cardiovascular: Cardiovascular: Denies chest pain, Denies lightheadedness, Denies palpitations and Denies dyspnea Respiratory: Respiratory: Denies dyspnea Gastrointestinal: Gastrointestinal: Denies diarrhea, Denies nausea and Denies vomiting Genitourinary: Genitourinary: Denies hematuria and Denies dysuria Endocrine: Endocrine: Denies palpitations PMFSH Past Medical History Medical History (Updated 06/27/22 @ 15:23 by Cecille Delarosa MD) Anxiety BPH (benign prostatic hyperplasia) Gallstone Hyperlipidemia Hypertension Surgical History Surgical History (Updated 06/27/22 @ 13:56 by Thelma Braxton NP) H/O cataract extraction H/O knee surgery H/O parathyroidectomy partial History of extraction of renal calculus History of surgery on arm S/P tonsillectomy and adenoidectomy the patient has a large scar on his right flank area Family History Family History Mother Family history of chronic obstructive pulmonary disease Father Malignant neoplasm of prostate Family history of malignant melanoma Acute myocardial infarction Other Cerebrovascular accident Family history of cardiovascular disease Family history of coronary artery disease Family history of lung disease Family history of malignant neoplasm Social History Social History (Updated 06/27/22 @ 13:56 by Thelma Braxton NP) Social History: the patient is and lives with his who is the durable power claims attorney for healthcare. The patient has 3 children. The patient retired from [employer]. He is a lifelong nonsmoker. He does not use any marijuana alcohol or illicit drugs. Code status full code Smoking status: Never smoker Second hand tobacco smoke exposure: No Alcohol intake: current Drinks per week: 1 Substance use: never Substance use type: does not use Lack of Transportation: No Lack of Food: Never True Current Housing: I Have Housing Concerned About Future Housing: No Difficulty Paying Gas/Electric Bills: No Difficulty Paying for Meds: No Currently Unemployed: No Education: Bachelor's Degree Difficulty w/ Childcare or Family Care: No Living arrangements: with family Spiritual care concerns: No Meds Home Medications and Allergies Home Medications Medication Instructions Recorded Confirmed Type cholecalciferol (vitamin D3) 50 50 mcg PO DAILY 07/17/20 07/01/22 History mcg (2,000 unit) tablet omega-3 fatty acids-fish oil 360 1 cap PO DAILY 07/17/20 07/01/22 History mg-1,200 mg capsule (Fish Oil) psyllium husk 0.52 gram capsule 1.04 g PO DAILY 07/17/20 07/01/22 History (Metamucil) amlodipine 5 mg tablet 5 mg PO DAILY #90 tabs 07/31/20 07/01/22 Rx escitalopram oxalate 20 mg tablet 20 mg PO DAILY 90 days #90 tabs 08/08/20 07/01/22 Rx metoprolol succinate 50 mg 50 mg PO DAILY #90 tabs 08/09/20 07/01/22 Rx tablet,extended release 24 hr diazepam 5 mg tablet 5 mg PO BID PRN anxiety 30 days 09/24/20 07/01/22 Rx #60 tabs finasteride 5 mg tablet 5 mg PO DAILY #90 tabs 09/24/20 07/01/22 Rx donepezil 5 mg tablet 5 mg PO HS 06/27/22 07/01/22 History memantine 10 mg tablet 10 mg PO QPM
[2022-07-10] VITALS (8 sets, daily range): BP systolic 125–150; BP diastolic 58–89; PULSE 53–74; RESP 12–18; TEMP 36.1–36.3; O2SAT 100
--- NOTE | ~2022-07-10 | XR_ITS ---
Supine and upright views of the abdomen Clinical history: Lithotripsy COMPARISON: 06/28/2022 Findings: Bowel gas pattern is nonspecific. No evidence for obstruction or free air. Left ureteral st ent present. There is a probable 1 cm stone at the mid left ureter along the course of the stent, pro jecting just superior to the iliac crest. Presumed small calcified pelvic phleboliths are present. Sm all left lower pole renal stone probably present. Osseous structures are intact. Impression: Left ureteral stent with probable 1 cm stone along the mid left ureter. Probable small left lower pole renal stone. Reviewed, dictated and finalized at location . [facility] C[facility] MANAGER Impression: Left ureteral stent with probable 1 cm stone along the mid left ureter. Probable small left lower pole renal stone.
--- NOTE | 2022-07-10 06:50 | WPDHPUPDATE1 ---
History and Physical Update Update Date/Time: 07/10/22 06:50 History and Physical has been reviewed, including an updated exam of the patient. There are NO changes in the patient's condition. Risks, benefits, and alternatives have been discussed and questions answered. Patient agrees to proceed with procedure.
--- NOTE | 2022-07-10 08:26 | WPDANESEPPF ---
Anes - Initial Pre Proc Eval Procedure: Operation Date: 07/10/22 10:00 Proposed Procedures p Left Extracorporeal Shock Wave Lithotripsy - Lanec Herron MD s Cystoscopy with Stent Removal or Exchange - Lance Herron MD Date/Time: 07/10/22 08:26 Surgeon: Lance Herron MD Pre Op Diagnosis: ureteral stones left Patient Data Age: 77 Gender: M Height: 1.75 m Weight: 68.2 kg Allergies Allergy/AdvReac Type Severity Reaction Status Date / Time Penicillins Allergy Mild rash Verified 07/10/22 08:04 Home Medications Medication Instructions Recorded Confirmed Type cholecalciferol (vitamin D3) 50 50 mcg PO DAILY 07/17/20 07/01/22 History mcg (2,000 unit) tablet omega-3 fatty acids-fish oil 360 1 cap PO DAILY 07/17/20 07/01/22 History mg-1,200 mg capsule (Fish Oil) psyllium husk 0.52 gram capsule 1.04 g PO DAILY 07/17/20 07/01/22 History (Metamucil) amlodipine 5 mg tablet 5 mg PO DAILY #90 tabs 07/31/20 07/01/22 Rx escitalopram oxalate 20 mg tablet 20 mg PO DAILY 90 days #90 tabs 08/08/20 07/01/22 Rx metoprolol succinate 50 mg 50 mg PO DAILY #90 tabs 08/09/20 07/01/22 Rx tablet,extended release 24 hr diazepam 5 mg tablet 5 mg PO BID PRN anxiety 30 days 09/24/20 07/01/22 Rx #60 tabs finasteride 5 mg tablet 5 mg PO DAILY #90 tabs 09/24/20 07/01/22 Rx donepezil 5 mg tablet 5 mg PO HS 06/27/22 07/01/22 History memantine 10 mg tablet 10 mg PO QPM 06/27/22 07/01/22 History Patient hx anesthesia problems: none Family hx anesthesia problems: none Results Review: All pre-operative results and documents have been reviewed as part of the pre-operative evaluation. [facility] Past Medical History Medical History Anxiety BPH (benign prostatic hyperplasia) Gallstone Hyperlipidemia Hypertension Surgical History Surgical History H/O cataract extraction H/O knee surgery H/O parathyroidectomy partial History of extraction of renal calculus History of surgery on arm S/P tonsillectomy and adenoidectomy the patient has a large scar on his right flank area Family History Family History Mother Family history of chronic obstructive pulmonary disease Father Malignant neoplasm of prostate Family history of malignant melanoma Acute myocardial infarction Other Cerebrovascular accident Family history of cardiovascular disease Family history of coronary artery disease Family history of lung disease Family history of malignant neoplasm Social History Social History Social History: the patient is and lives with his who is the durable power disability attorney for healthcare. The patient has 3 children. The patient retired from [email or web address]. He is a lifelong nonsmoker. He does not use any marijuana alcohol or illicit drugs. Code status full code Smoking status: Never smoker Second hand tobacco smoke exposure: No Alcohol intake: current Drinks per week: 1 Substance use: never Substance use type: does not use Lack of Transportation: No Lack of Food: Never True Current Housing: I Have Housing Concerned About Future Housing: No Difficulty Paying Gas/Electric Bills: No Difficulty Paying for Meds: No Currently Unemployed: No Education: Bachelor's Degree Difficulty w/ Childcare or Family Care: No Living arrangements: with family Spiritual care concerns: No Anes - Eval Final PreProcedure Day of Procedure 07/10/22 08:26 Patient weight: normal Heart: regular rate and rhythm Lungs: clear to auscultation Airway: Mallampati scale class II Neurological: alert and oriented Last oral intake: >/= 8 hours ASA classification: III Emergent: no Anesthetic plan: proceed Anesthesia type and monitoring: general
[2022-07-10] MEDS: LACTATED RINGERS 1,000 ML 30 ML IV CONT (08:33)
[2022-07-10] MEDS: ceFAZolin 2 GM/D5W 50 ML 2 GM/50 ML BAG IVPB (08:39)
--- NOTE | 2022-07-10 10:13 | W.PM.PROC2 ---
Procedure Note - Detailed Date of Procedure 07/10/22 Pre-op Diagnosis Left ureteral and left renal stones Post-op Diagnosis Same Procedure Performed Left ESWL Surgeon Lance Herron MD Anesthesia General Description of Procedure The patient was brought to the operative suite where he was placed in the supine position on the [facility] lithotripsy table. The focal point of the lithotripter was placed at a 1cm left mid-ureteral calculus. A total of 3000 shocks were delivered at a power setting of 6. We then treated a small stone in left lower pole with 500 shocks at a power of 3. There appeared to be good fragmentation of the stone. The patient tolerated the procedure well and was taken to the recovery room in good condition. Drains No Packing No Pathology None sent Complications No immediate complications
== END 2022-07-10 11:30 | disposition home or self-care (01) ==
PROVIDERS: PCP Physician Assistant; Visit Provider Urology
PROC: (CPT 50590; principal; 2022-07-10 10:00)
DX: N20.2 Calculus of kidney with calculus of ureter (principal); I10 Essential (primary) hypertension; E78.5 Hyperlipidemia, unspecified; N40.0 Benign prostatic hyperplasia without lower urinary tract symptoms; F41.9 Anxiety disorder, unspecified
CPT/HCPCS: 50590; 74018; A9270; J0690; J1100; J2370; J2405; J2704; J3010; J7030; J7120

== ENCOUNTER 2022-07-27 10:45 | Outpatient (CLI) | payer MEDICARE, SELFPAY ==
--- NOTE | ~2022-07-27 | XR_ITS ---
EXAMINATION: XR abdomen/kub 1V INDICATION: Calculus of ureter TECHNIQUE: Supine views of the abdomen were obtained on 2 radiographs. COMPARISON: 07/10/2022 FINDINGS: A left internal ureteral stent is in expected position. The previously described stone remedios cent to the proximal left internal ureteral stent is not definitely identified. There is a questionab le stone fragment adjacent to the distal stent. There appears to be a 4 mm stone of the left kidney l ower pole. The bowel gas pattern is normal. There are multiple phleboliths of the pelvis. IMPRESSION: 1. Left internal ureteral stent in expected position with possible small stone fragment adjacent to t he distal stent. Probable left nephrolithiasis. Reviewed, dictated and finalized at location B. BURN OFF OPERATOR IMPRESSION: 1. Left internal ureteral stent in expected position with possible small stone fragment adjacent to the distal stent. Probable left nephrolithiasis.
== END 2022-07-27 10:46 | disposition home or self-care (01) ==
PROVIDERS: PCP Physician Assistant; Visit Provider Urology
DX: N20.1 Calculus of ureter (principal)
CPT/HCPCS: 74018

== ENCOUNTER → 2023-03-15 11:37 | Outpatient (CLI) | payer MEDICARE, SELFPAY ==
--- NOTE | ~2023-03-15 | XR_ITS ---
Supine and upright views of the abdomen Clinical history: Left ureteral stone COMPARISON: 07/27/2022 Findings: Bowel gas pattern is nonspecific. No evidence for obstruction or free air. No definite angela l or ureteral stones identified. Calcified pelvic phleboliths are present. Osseous structures are int act. Impression: No definite renal or ureteral stones seen. Reviewed, dictated and finalized at [place] [facility]. Impression: No definite renal or ureteral stones seen.
== END ==
PROVIDERS: PCP Physician Assistant; Visit Provider Urology
DX: N20.1 Calculus of ureter (principal)
CPT/HCPCS: 74018